=== PATIENT | male | born 1985 | race Caucasian/White ===

== ENCOUNTER 2017-03-01 08:30 | Emergency (ER) | payer OTHER ==
[~2017-03-01] VITALS: Ht 182.9 cm; Wt 89.9 kg
[2017-03-01 08:32] VITALS: Ht 182.9 cm; Wt 89.9 kg
--- NOTE | 2017-03-01 09:54 | RADRPT ---
PROCEDURE: XR Chest. CLINICAL INDICATION: cough, sob TECHNIQUE: Single frontal view of the chest was obtained. COMPARISON: None. FINDINGS: The heart and mediastinum are within normal limits. The lungs are clear. There is no significant pleural effusion or pneumothorax. IMPRESSION: No acute disease. RPTAT: EE Physician Santhosh Date Time Electronically viewed and signed by Xavi Fields Physician on 03/01/2017 09:54 RA/
--- NOTE | 2017-03-01 09:55 | RADRPT ---
PROCEDURE: XR Cervical Spine. CLINICAL INDICATION: cough, sob TECHNIQUE: AP, lateral and odontoid views of the cervical spine were performed. The images were re viewed on a PACS workstation. COMPARISON: None. FINDINGS: There is straightening of the cervical lordosis. There is normal osseous mineralization. The vertebral body alignment and height are normal. The intervertebral disc spaces are well maintained. There is no acute fracture. There is no subluxation. There are no abnormal calcifications. The prevertebral soft tissues are normal. IMPRESSION: Straightening of the cervical lordosis. RPTAT: EE Physician Santhosh Date Time Electronically viewed and signed by Physician Santhosh on 03/01/2017 09:54 RA/
[2017-03-01] MEDS ORDERED: GUAI120S26 PO (10:16)
[2017-03-01] MEDS ORDERED: ALBU18HF INHALATION (10:16)
--- NOTE | 2017-03-07 17:26 | ERD ---
ER Documentation Chief Complaint Date/Time DATE: 03/07/17 TIME: 17:[address], FEELS SOMETHING STUCK IN THROAT,SOB HPI This is a 31 year old male patient with no significant past medical history presents to the ED complaining of sore throat and congestion that started 1 week ago especially after eating lunch. States that he is also having a dry cough. Denies any abdominal pain, vomiting, diarrhea, chest pain, wheezing. Reports that he feels like something is in his throat but denies any dysphagia, odynophagia. Denies any anxiety. States that he smokes 3 cigarettes per day. Denies any recent traveling. Denies any leg swelling. ROS All systems reviewed and are negative except as per history of present illness. Medications Home Meds Active Scripts Acetamin/Butalbital/Caffeine* (Fioricet*) [id number] Tab, 1 TAB PO Q6H Y for PAIN, #20 TAB Prov:WILSON MARTINES PA-C 03/06/17 Albuterol Sulfate* (Ventolin HFA*) 18 Gm Hfa.aer.ad, 2 PUFF INHALATION Q4H, #1 INHALER Prov:DAGO GARNER PA-C 03/01/17 Qlmekqbwigs-W-Oydoacscgt Hb* (Guaifenesin* DM Syrup) 120 Ml Syrup, 10 ML PO Q4H Y for COUGH, #120 ML Prov:DAGO GARNER PA-C 03/01/17 Reported Medications [None] No Conflict Check 07/09/10 Allergies Allergies: Coded Allergies: Penicillins (Verified Allergy, Mild, 03/06/17) PMhx/Soc Medical and Surgical Hx: pt denies Medical Hx, pt denies Surgical Hx History of Surgery: No Anesthesia Reaction: No Hx Neurological Disorder: No Hx Respiratory Disorders: No Hx Cardiac Disorders: No Hx Psychiatric Problems: No Hx Miscellaneous Medical Probl: No Hx Alcohol Use: Yes Hx Substance Use: No Hx Tobacco Use: Yes Smoking Status: Never smoker Physical Exam Vitals Temp 98.1 Pulse 90 SBP 159 DBP 90 Resp 20 O2 Sat 99 Pain Intensity 4 Physical Exam Const: Nontoxic, well appearing Head: Atraumatic Eyes: Normal Conjunctiva ENT: Normal External Ears, Nose and Mouth. Tympanic membrane pearly de paz. No tenderness to palpation of mastoid or tragus. Moist oropharynx with no tonsillar exudates. Non-erythematous pharynx. Uvula midline. Neck: Full range of motion..~ No meningismus. Resp: Clear to auscultation bilaterally. No wheezing, rhonchi, crackles. No accessory muscle use. Cardio: Regular rate and rhythm, no murmurs Abd: Soft, non tender, non distended. Normal bowel sounds Skin: No petechiae or rashes Back: No midline or flank tenderness Ext: No cyanosis, or edema Neur: Awake and alert Psych: Normal Mood and Affect Procedures/MDM 31 year old male patient with no significant past medical history presents to the ED complaining of feeling like something is stuck in his throat. Patient is afebrile, nontoxic appearing. A CXR and neck xray was ordered to further evaluate patient. Patient is speaking in full sentences. No respiratory distress noted. Oxygen saturation is 99%. PROCEDURE: XR Cervical Spine. CLINICAL INDICATION: cough, sob TECHNIQUE: AP, lateral and odontoid views of the cervical spine were performed. The images were reviewed on a PACS workstation. COMPARISON: None. FINDINGS: There is straightening of the cervical lordosis. There is normal osseous mineralization. The vertebral body alignment and height are normal. The intervertebral disc spaces are well maintained. There is no acute fracture. There is no subluxation. There are no abnormal calcifications. The prevertebral soft tissues are normal. PROCEDURE: XR Chest. CLINICAL INDICATION: cough, sob TECHNIQUE: Single frontal view of the chest was obtained. COMPARISON: None. FINDINGS: The heart and mediastinum are within normal limits. The lungs are clear. There is no significant pleural effusion or pneumothorax. IMPRESSION: No acute disease. Discharge medications: IMPRESSION: Straightening of the cervical lordosis. Patient could have possible post-nasal drip. CXR and neck xray unremarkable. No e/o of foreign bodies. Patient's lungs are clear to auscultation. Low suspicion for pneumonia, Jaret's angina, retropharyngeal abscess, peritonsillar abscess, deep space infection, pulmonary embolism, atypical MA, CHF, pneumonia, or other emergent conditions. Smoking cessation of at least 3 minutes was discussed with the patient. Discharge medications: Guaifenesin DM, Albuterol Instructed patient to follow up with primary care physician in 1-2 days for further care and treatment for a referral for possible endoscopy. Instructed patient to return to the ED immediately for any worsening symptoms. Patient agreed, his questions were answered and understood the discharge management. Departure Diagnosis: Primary Impression: Post-nasal drip Additional Impression: Shortness of breath Condition: Stable Patient Instructions: Coping with Shortness of Breath: Controlling Stress, Uri , Viral, No Abx (Adult) Referrals: [facility] YOU HAVE RECEIVED A MEDICAL SCREENING EXAM AND THE RESULTS INDICATE THAT YOU DO NOT HAVE A CONDITION THAT REQUIRES URGENT TREATMENT IN THE EMERGENCY DEPARTMENT. FURTHER EVALUATION AND TREATMENT OF YOUR CONDITION CAN WAIT UNTIL YOU ARE SEEN IN YOUR DOCTORS OFFICE WITHIN THE NEXT 1-2 DAYS. IT IS YOUR RESPONSIBILITY TO MAKE AN APPOINTMENT FOR FOLOW-UP CARE. IF YOU HAVE A PRIMARY DOCTOR --you should call your primary doctor and schedule an appointment IF YOU DO NOT HAVE A PRIMARY DOCTOR YOU CAN CALL OUR PHYSICIAN REFERRAL HOTLINE AT IF YOU CAN NOT AFFORD TO SEE A PHYSICIAN YOU CAN CHOSE FROM THE FOLLOWING [facility] [address] [facility] [address] [facility]. [facility] [address] [facility] [address] [facility] [address] [facility]. [facility]. [address] [facility]. [facility] YOU HAVE RECEIVED A MEDICAL SCREENING EXAM AND THE RESULTS INDICATE THAT YOU DO NOT HAVE A CONDITION THAT REQUIRES URGENT TREATMENT IN THE EMERGENCY DEPARTMENT. FURTHER EVALUATION AND TREATMENT OF YOUR CONDITION CAN WAIT UNTIL YOU ARE SEEN IN YOUR DOCTORS OFFICE WITHIN THE NEXT 1-2 DAYS. IT IS YOUR RESPONSIBILITY TO MAKE AN APPOINTMENT FOR FOLOW-UP CARE. IF YOU HAVE A PRIMARY DOCTOR --you should call your primary doctor and schedule and appointment IF YOU DO NOT HAVE A PRIMARY DOCTOR YOU CAN CALL OUR PHYSICIAN REFERRAL HOTLINE AT . IF YOU CAN NOT AFFORD TO SEE A PHYSICIAN YOU CAN CHOSE FROM THE FOLLOWING [facility], [facility]–1983 INSTITUTIONS: [facility] [address] [place] [address] [facility] [address] [place] [address] [facility] + [facility] [address] [place] [address] [facility] URGENT C[facility]/SPECIALTIES Additional Instructions: Call your primary care doctor TOMORROW for an appointment during the next 1-2 days.See the doctor sooner or return here if your condition worsens before your appointment time. DAGO GARNER PA-C Mar 07, 2017 17:20
== END 2017-03-01 10:25 | disposition home or self-care (01) ==
LOC: FTE 08:30
DX: R09.82 Postnasal drip (principal); Z87.891 Personal history of nicotine dependence
CPT/HCPCS: 71010; 72040

== ENCOUNTER 2017-03-06 09:08 | Emergency (ER) | payer OTHER ==
[~2017-03-06] VITALS: Ht 182.9 cm; Wt 98.2 kg
[~2017-03-06 09:08] MED LIST: ALBU18HF INHALATION; GUAI120S26 PO
[2017-03-06 09:11] VITALS: Ht 182.9 cm; Wt 98.2 kg
[2017-03-06] MEDS ORDERED: FIORICET PO (09:49)
[2017-03-06 10:36] VITALS: BP 126/78; PULSE 76; RESP 19; TEMP 98.4
--- NOTE | 2017-03-06 16:24 | ERD ---
ER Documentation Chief Complaint Date/Time DATE: 03/06/17 TIME: 15:58 Chief Complaint FRANCO HPI This patient is a 31-year-old male with no significant medical history presenting to the emergency department for left-sided headache which began last night. The patient states the pain was a 9 out of 10 yesterday but then he took Excedrin this morning and his headache is reduced to 1 out of 10. The patient denies nausea, vomiting, diarrhea, abdominal pain, dizziness, weakness, or other symptoms at this time. ROS All systems reviewed and are negative except as per history of present illness. Medications Home Meds Active Scripts Acetamin/Butalbital/Caffeine* (Fioricet*) [id number] Tab, 1 TAB PO Q6H Y for PAIN, #20 TAB Prov:WILSON MARTINES PA-C 03/06/17 Albuterol Sulfate* (Ventolin HFA*) 18 Gm Hfa.aer.ad, 2 PUFF INHALATION Q4H, #1 INHALER Prov:DAGO GARNER PA-C 03/01/17 Fgcpiqdfgoc-O-Vitfrjhblo Hb* (Guaifenesin* DM Syrup) 120 Ml Syrup, 10 ML PO Q4H Y for COUGH, #120 ML Prov:DAGO GARNER PA-C 03/01/17 Reported Medications [None] No Conflict Check 07/09/10 Allergies Allergies: Coded Allergies: Penicillins (Verified Allergy, Mild, 03/06/17) PMhx/Soc History of Surgery: No Anesthesia Reaction: No Hx Neurological Disorder: No Hx Respiratory Disorders: No Hx Cardiac Disorders: No Hx Psychiatric Problems: No Hx Miscellaneous Medical Probl: No Hx Alcohol Use: Yes (everyday) Hx Substance Use: No Hx Tobacco Use: Yes Smoking Status: Current every day smoker Physical Exam Vitals Vital Signs Date Time Temp Pulse Resp B/P Pulse Ox O2 Delivery O2 Flow Rate FiO2 03/06/17 10:36 98.4 76 19 126/78 100 Room Air 03/06/17 09:11 98.1 90 20 150/78 99 Physical Exam Const: The patient is resting comfortably in no acute distress. Head: Atraumatic Eyes: Normal Conjunctiva. EOMs intact bilaterally. ENT: Normal External Ears, Nose and Mouth. Neck: Full range of motion..~ No meningismus. Resp: Clear to auscultation bilaterally Cardio: Regular rate and rhythm, no murmurs Abd: Soft, non tender, non distended. Normal bowel sounds Skin: No petechiae or rashes Back: No midline or flank tenderness Ext: No cyanosis, or edema Neur: Awake and alert. Cranial nerves intact. Strength and sensation intact in bilateral upper and lower extremities. Psych: Normal Mood and Affect Procedures/MDM 31-year-old male presents secondary to complaints of left-sided headache which began last night but is now much improved. The patient has no neurological deficits or weakness on one side of the body. The patient has history of alcohol abuse and has stopped drinking in the past week. Headache may be related to mild alcohol withdrawals. The patient has no signs of delirium tremens. I have low suspicion for cellulitis, meningitis, CVA, TIA, status migrainosus, or other emergent conditions. The patient is stable for outpatient management with a prescription for Fioricet. The patient was given strict ER return precautions and he demonstrates good understanding. Currently the patient's headache symptoms have resolved. The patient is stable for outpatient management. The patient is to have close follow-up with his primary care physician within the next 1-3 days. Departure Diagnosis: Primary Impression: Headache Condition: Fair Patient Instructions: Self-Care for Headaches, Headache, Migraine (Classical) Referrals: [facility] YOU HAVE RECEIVED A MEDICAL SCREENING EXAM AND THE RESULTS INDICATE THAT YOU DO NOT HAVE A CONDITION THAT REQUIRES URGENT TREATMENT IN THE EMERGENCY DEPARTMENT. FURTHER EVALUATION AND TREATMENT OF YOUR CONDITION CAN WAIT UNTIL YOU ARE SEEN IN YOUR DOCTORS OFFICE WITHIN THE NEXT 1-2 DAYS. IT IS YOUR RESPONSIBILITY TO MAKE AN APPOINTMENT FOR FOLOW-UP CARE. IF YOU HAVE A PRIMARY DOCTOR --you should call your primary doctor and schedule an appointment IF YOU DO NOT HAVE A PRIMARY DOCTOR YOU CAN CALL OUR PHYSICIAN REFERRAL HOTLINE AT IF YOU CAN NOT AFFORD TO SEE A PHYSICIAN YOU CAN CHOSE FROM THE FOLLOWING [facility] [address] [facility] [address] [facility] [address] [facility] [address] [facility]. [facility] [address] [facility]. [facility] [address] Additional Instructions: Follow up with your PCP within the next 1-3 days for a more thorough evaluation and a possible referral to a specialist. Return the the emergency department immediately if symptoms worsen or change. If you have any questions regarding medications, ask your pharmacist or us before you leave. If any adverse reactions, occur while taking your medications, discontinue the treatment and return to the emergency department immediately. If any new or worsening symptoms, uncontrolled fevers, or other unexplained symptoms occur, return to the emergency department immediately. Take your medications as directed, and complete the entire course of treatment. WILSON MARTINES PA-C Mar 06, 2017 16:24
== END 2017-03-06 10:37 | disposition home or self-care (01) ==
LOC: FTE 09:08
DX: R51 Headache (principal); F17.210 Nicotine dependence, cigarettes, uncomplicated
CPT/HCPCS: 99283